=== PATIENT | male | born 1990 | race Caucasian/White ===

== ENCOUNTER 2024-02-10 11:53 | Emergency (ER) | payer MEDICAID ==
[~2024-02-10] VITALS: Ht 436.8 cm; Wt 99.8 kg
[~2024-02-10 11:53] MED LIST: CLIN-214 PO; CLIN-97 PO
[2024-02-10] MEDS: ondansetron/PF 4mg/2ml inj IV ONE (14:00)
[2024-02-10] MEDS: fentaNYL/PF 50MCG/1 ML 2ML syringe IV ONE (14:01)
[2024-02-10 14:17] LABS: BASOPHILS # (AUTO) 0.1 X10'3 (0-0.2); BASOPHILS % (AUTO) 0.5 % (0-1); EOSINOPHILS # (AUTO) 0.1 X10'3 (0-0.9); EOSINOPHILS % (AUTO) 0.7 % (0-6); HEMATOCRIT 46.2 % (42.0-52.0); HEMOGLOBIN 15.3 g/dl (14.0-17.9); LYMPHOCYTES # (AUTO) 1.5 X10'3 (1.1-4.8); LYMPHOCYTES % (AUTO) 10.1 % (21-51); MEAN CORPUSCULAR HEMOGLOBIN 27.6 PG (27.0-31.0); MEAN CORPUSCULAR VOLUME 83.4 FL (78-98); MEAN PLATELET VOLUME 7.9 FL (7.4-10.4); MONOCYTES # (AUTO) 1.1 X10'3 (0-0.9); MONOCYTES % (AUTO) 7.5 % (2-12); NEUTROPHILS # (AUTO) 12.2 X10'3 (1.8-7.7); NEUTROPHILS % (AUTO) 81.2 % (42-75); PLATELET COUNT 348 X10'3 (140-440); RED BLOOD COUNT 5.54 X10'6 (4.70-6.10)
[2024-02-10 14:32] LABS: APTT 29 SECONDS (22-32); PROTHROMBIN TIME 10.3 SECONDS (9.0-12.0)
[2024-02-10 14:45] LABS: ALANINE AMINOTRANSFERASE 37 U/L (12-78); ALBUMIN 4.5 G/DL (3.4-5.0); ALBUMIN/GLOBULIN RATIO 1.1 (1.1-1.5); ALKALINE PHOSPHATASE 114 IU/L (46-116); ANION GAP 8 (8-16); ASPARTATE AMINO TRANSFERASE 26 U/L (10-37); BILIRUBIN,TOTAL 0.7 MG/DL (0.1-1.0); BLOOD UREA NITROGEN 8 MG/DL (7-18); BUN/CREATININE RATIO 6.5 (10.0-20.0); CALCIUM 9.7 MG/DL (8.5-10.1); CHLORIDE 104 MMOL/L (99-107); CREATININE 1.24 MG/DL (0.60-1.10); GLUCOSE 116 MG/DL (70-104); POTASSIUM 4.4 MMOL/L (3.5-5.1); SODIUM 141 MMOL/L (135-145); TOTAL CARBON DIOXIDE 29.3 MMOL/L (24-32); TOTAL PROTEIN 8.6 G/DL (6.4-8.2); eCRCL 117 ML/MIN; eGFR 66 ML/MIN
[2024-02-10 14:46] LABS: FREE T4 (FREE THYROXINE) 0.91 NG/DL (0.73-1.40); LIPASE 82 U/L (16-77); MAGNESIUM 2.3 MG/DL (1.5-2.4); PRO BRAIN NATRIURETIC PEPTIDE 753 PG/ML (0-125); THYROID STIMULATING HORMONE 0.96 ulU/ml (0.34-4.50)
[2024-02-10] MEDS: ketorolac trometh 30MG/ML vial 30 MG/ML VIAL IV ONE (14:52)
[2024-02-10 15:11] LABS: BILIRUBIN,URINE NEGATIVE (Neg); CLARITY,URINE CLOUDY (Clear); COLOR,URINE AMBER (Yellow); GLUCOSE, URINE NEGATIVE (Neg); KETONES,URINE NEGATIVE (Neg); LEUKOCYTE ESTERASE ,URINE NEGATIVE (Neg); NITRITES, URINE NEGATIVE (Neg); OCCULT BLOOD,URINE LARGE (Neg); PROTEIN,URINE TRACE mg/dl (Neg); UROBILINOGEN,URINE 0.2 E.U/dL (0.2-1.0)
[2024-02-10 15:26] LABS: URINE AMPHETAMINE SCREEN POSITIVE (Neg); URINE BARBITUATE SCREEN NEGATIVE (Neg); URINE BENZODIAZEPINES SCREEN NEGATIVE (Neg); URINE CANNABINOID SCREEN NEGATIVE (Neg); URINE COCAINE SCREEN NEGATIVE (Neg); URINE METHADONE SCREEN NEGATIVE (Neg); URINE OPIATE SCREEN NEGATIVE (Neg); URINE PHENCYCLIDINE SCREEN NEGATIVE (Neg)
[2024-02-10 15:28] LABS: UA COLLECTION TYPE CLN CATCH MIDSTREAM
[2024-02-10 15:31] LABS: BACTERIA,URINE NONE SEEN /HPF (Neg); MUCUS STRANDS FEW /LPF (Neg); RBC,URINE TNTC /HPF (0-2); SQUAMOUS EPITHELIAL CELL,UR FEW /LPF (FEW); WBC,URINE 0-4 /HPF (0-4)
[2024-02-10] MEDS: HYDROcodone/acetaminophen 5mg/325mg tablet PO ONE (15:37)
[2024-02-10] MEDS: hydrALAZINE 20mg/ml inj. IV ONE ×2 (15:38→16:35)
[2024-02-10] MEDS: normal saline 1000ml 1,000 ML IV ONE (15:52)
[2024-02-10] MEDS: cloNIDine 0.1 mg tablet PO ONE (16:35)
[2024-02-10] MEDS ORDERED: LISI40TA13 PO (16:59)
[2024-02-10 17:03] VITALS: BP 184/100; PULSE 87; RESP 18; TEMP 98.1; O2SAT 97
== END 2024-02-10 17:04 | disposition home or self-care (01) ==
LOC: ER 11:53
DX: N20.0 Calculus of kidney (principal); Z79.2 Long term (current) use of antibiotics; Z72.89 Other problems related to lifestyle
CPT/HCPCS: 36415; 71045; 74176; 80053; 80305; 81001; 83605; 83690; 83735; 83880; 84439; 84443; 84484; 85025; 85610; 85730; 87040; 96361; 96374; 96375; 96376; 99285; J0360; J1885; J2405; J3010; J7030; 96360; 96372

== ENCOUNTER 2025-03-21 16:36 | Emergency (ER) | payer MEDICAID ==
[~2025-03-21] VITALS: Ht 185.4 cm; Wt 89.3 kg
[~2025-03-21 16:36] MED LIST changes: +CLIN-224 PO; -CLIN-97 PO
[2025-03-21 16:41] VITALS: TEMP 98.2
--- NOTE | 2025-03-21 16:49 | Physician Documentation ---
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 Patient denies any significant past medical history or congestive heart failure or current chest pain or shortness of breath or abdominal pain or nausea, vomiting, diarrhea or other any other concomitant drug use or alcohol use. Patient has no other concern or complaint at this time. Tetanus within 5 years?: Yes Medication Reconciliation Allergies: Coded Allergies: No Known Allergies (Unverified , 07/28/10) Scheduled Clindamycin HCL* (Clindamycin HCL*), 1 CAP PO Q6H Clindamycin HCl (Clindamycin HCl CAPSULE), 3 CAP PO TID Past Medical History Past Medical History: No Pertinent History Past Surgical History: no surgical history Alcohol Use: Occasionally Drug Use: none Lives with: Family Lives In: Home Review of Systems Constitutional: Denies: chills, fever, weakness Eyes: Denies: pain, blurred vision ENT: Denies: ear pain, nose pain, throat pain, mouth pain Respiratory: Denies: cough, shortness of breath Cardiovascular: Denies: chest pain, palpitations Gastrointestinal: Denies: abdominal pain, nausea, vomiting Genitourinary: Denies: burning, dysuria Male Genitalia: Denies: penile discharge, testicular pain Neurological: Denies: headache, dizziness Musculoskeletal: Denies: pain, swelling Integumentary: Denies: rash, lesions Allergic/Immunologic: Denies: hives, itching Hematologic/Lymphatic: Denies: no symptoms reported Psychiatric: Denies: depression, anxiety Physical Exam Vital Signs: Temperature: 98.2, Source: Temporal, Heart Rate: 102, Respiratory Rate: 18, BP: 189/98, Pulse Oximetry: 100, Weight: 89.300 Oxygen Flow Rate: 0 Physical Exam General: Awake and Alert, no acute distress. HEENT: Conjunctiva pink, Sclera clear, Mucus Membranes moist. Neck: Supple without masses and tenderness. Resp: Unlabored. Lungs clear to auscultation bilaterally. Heart: Regular Rate and rhythm, normal S1 and S2 without murmur, rub or gallop. Abdomen: Soft and non tender no organomegaly Extremities: No cyanosis,clubbing or edema. Skin: Warm and Dry. 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 Patient denies any significant past medical history or congestive heart failure or current chest pain or shortness of breath or abdominal pain or nausea, vomiting, diarrhea or other any other concomitant drug use or alcohol use. Patient has no other concern or complaint at this time. Patient is medically cleared for entrance into detox program of patient's choice. Patient will return to ED with any worsening, concerning or changing symptoms. Differential Dx:Considerations: Include: Intoxication-Alcohol, Intoxication- Other drug, Substance abuse disorder, Alcohol withdrawl syndrom Departure Disposition: 01 HOME / SELF CARE / HOMELESS Impression: Primary Impression: General medical exam Condition: Stable Discharge Instructions: Medical Screening Exam Additional Instructions: Patient is medically cleared for entrance into detox program of patient's choice. Patient will return to ED with any worsening, concerning or changing symptoms. Referrals: NO PRIMARY CARE PROVIDER (PCP) Signature Scribe Signature: No scribe Attestation: No scribe LYNNE MCDONOUGH PAC Mar 21, 2025 16:48
[2025-03-21 17:36] VITALS: BP 165/63; PULSE 106; RESP 18; O2SAT 100
== END 2025-03-21 17:40 | disposition home or self-care (01) ==
LOC: ER 16:37
DX: Z00.00 Encounter for general adult medical examination without abnormal findings (principal); F15.20 Other stimulant dependence, uncomplicated; Z72.89 Other problems related to lifestyle
CPT/HCPCS: 99282